=== PATIENT | female | born 1950 | race Caucasian/White ===

== ENCOUNTER 2018-08-09 13:45 | Outpatient (REF) | payer OTHER, SELFPAY ==
[2018-08-09 15:06] LABS: Bacteria Moderate HPF (Negative); Crystals Negative HPF (Negative); Mucus Trace (Negative); RBC Negative (0-2)
[2018-08-09 15:08] LABS: C & S Indicated? No/Sq. Contamination; Epithelial Cells Many HPF (Negative); Other Cells Rare Renal (Negative)
== END 2018-08-09 14:05 ==
LOC: LBN 13:45
PROVIDERS: Visit Provider Nurse Practitioner Gerontology
DX: N39.0 Urinary tract infection, site not specified (principal); R31.9 Hematuria, unspecified
CPT/HCPCS: 81015